=== PATIENT | female | born 1945 | race American Indian/Alaskan Native ===

== ENCOUNTER 2018-05-17 13:04 | Observation (INO) | payer BC, MEDICARE ==
--- NOTE | 2018-05-17 13:23 | ED PDOC ---
Arrival/HPI - General Chief Complaint: Chest Pain Time Seen by Provider: 05/17/18 13:14 Historian: Patient - History of Present Illness Narrative History of Present Illness (Text): 05/17/18 13:22 72 year old female, whose PMH includes hypertension, asthma, and anemia, who presents to the emergency department complaining of sudden onset of sub-sternal chest tightness that began while completing daily physical rehab (outpatient) s/ p right knee surgery. Dr. Vazquez did patient's surgery in March and patient has been attending physical therapy 5 days a week over the last 2 weeks. Patient reports feeling well until today and states her chest pain is similar to previous chest pain symptoms that she was treated for weeks ago at [facility] for pulmonary embolism. Patient states she felt shortness of breath today associated with fatigue and not feeling well herself. Patient denies fever, chills, sweats, palpitations, numbness/tingling, abdominal pain, nausea, vomiting, diarrhea, or other complaints. Pt denied rashes/bleeding; She also noted having continuous right knee pain with some swelling; pt denied other complaints; pt is here for further eval. during recent hospitalization at [facility] - pt + anemia/PE (received IVC filter), currently on lovenox injection daily [facility] Quality Assurance Analyst: Dr. Weaver Patient is supposed to f/u with Dr. Olguin, for hematology/oncology. Time/Duration: Prior to Arrival Symptom Onset: Sudden Symptom Course: Improving Quality: Tightness Severity Level: Severe Activities at Onset: Other (rehab) Context: Other (rehab) Past Medical History - Provider Review Nursing Documentation Reviewed: Yes - Travel History Have you recently traveled outside [place] w/in the past 3 mons?: No - Infectious Disease Hx of Infectious Diseases: None - Tetanus Immunization Tetanus Immunization: Unknown - Reproductive Menopause: Yes Currently : No - Cardiac Hx Hypertension: Yes - Pulmonary Hx Asthma: Yes (sleep apnea) Hx Pneumonia: Yes (" IN THE 1970'S") - Neurological Hx Neurological Disorder: No - HEENT Hx HEENT Disorder: No - Renal Hx Renal Disorder: No - Endocrine/Metabolic Hx Endocrine Disorders: No - Hematological/Oncological Hx Anemia: Yes (On supplemental iron prior to admission) - Integumentary Hx Dermatological Disorder: No - Musculoskeletal/Rheumatological Hx Arthritis: Yes Hx Falls: No Hx Fractures: Yes (HX: TOES) - Gastrointestinal Hx Constipation: Yes (In transitional care unit) Other/Comment: Colonoscopy with polypectomy - Genitourinary/Gynecological Hx Genitourinary Disorders: No - Psychiatric Hx Depression: Yes Hx Substance Use: No - Past Surgical History Past Surgical History: No Previous - Surgical History Hx Gastric Bypass Surgery: Yes Hx Joint Replacement: Yes (04/12/2018 right TKR) Hx Tonsillectomy: Yes Other/Comment: Bunionectomy, reduction mammoplasty 1999 - Anesthesia Hx Anesthesia: Yes Hx Anesthesia Reactions: No Hx Malignant Hyperthermia: No - Suicidal Assessment Feels Threatened In Home Enviroment: No Family/Social History - Physician Review Nursing Documentation Reviewed: Yes Family/Social History: Unknown Family HX Smoking Status: Never Smoked Hx Alcohol Use: No Hx Substance Use: No Hx Substance Use Treatment: No Allergies/Home Meds Allergies/Adverse Reactions: Allergies peanut Allergy (Intermediate, Verified 04/26/18 17:02) SHORTNESS OF BREATH Review of Systems - Review of Systems Constitutional: Fatigue. absent: Fevers Eyes: Normal ENT: absent: Sinus Congestion Respiratory: SOB. absent: Cough Cardiovascular: Chest Pain Gastrointestinal: absent: Abdominal Pain, Nausea, Vomiting Genitourinary Female: absent: Dysuria Musculoskeletal: absent: Back Pain Skin: absent: Rash Neurological: absent: Headache, Dizziness Endocrine: absent: Diaphoresis Hemo/Lymphatic: Normal Psychiatric: Normal Physical Exam - Physical Exam Narrative Physical Exam (Text): 05/17/18 General: alert/awake, GCS = 15, oriented x 3, resting in bed, uncomfortable, cooperative, interactive; NAD; + mildly anxious Head: NC/AT EYE: PERRLA, EOMI, sclera anicteric, no nystagmus, no photophobia; visual field intact b/l Facial: WNL Oral: uvula/tongue are midline, no exudate/lesions, no drooling/stridor, no dysphonia; fair dentitions NECK: intact ROM, no midline tenderness, no nuchal rigidity, no meningeal signs ; no step off Chest: CTA b/l, no w/r/r; no tachypenia, no accessory muscle use noted Chest Wall: no crepitus, no lesions, no gross deformities, no focal tenderness Cardiac: +S1, +S2, no m/r/r, no tachycardia Abdominal: +BS, soft/nd/nt, well nourished patient; no masses/rebound/guarding/ rigidity; no plummer's sign, no mcburney's point tenderness Extremities: (+) right knee covered with bandage and decreased ROM due to previous surgery; (+) mild Right leg swelling > left; (+) +1 pedal edema to distal knee; strength 5/5 grossly intact in all limbs, neurovascular intact b/l ; + ambulatory with limp BACK: no step off, no midline tenderness, NO crepitus, no gross deformities noted; Intact ROM SKIN: (+) mild paleness, cap refill < 1 sec, no ulcerations, no petechiae, no rashes NEURO: CNII-XII WNL, no facial asymmetries, no slurr speech, oriented x 3 NIH stroke scale ~ 0 Psych: normal insight, normal affect; follows command with ease Vital Signs Reviewed: Yes Vital Signs Temp Pulse Resp BP Pulse Ox 05/17/18 16:43 84 18 107/53 L 96 05/17/18 13:05 98.3 F 72 17 100/65 98 Temperature: Afebrile Blood Pressure: Normal Pulse: Regular Respiratory Rate: Normal Appearance: Positive for: Well-Appearing, Non-Toxic, Uncomfortable Pain Distress: Mild Mental Status: Positive for: Alert and Oriented X 3 - Systems Exam Head: Present: Atraumatic, Normocephalic Medical Decision Making ED Course and Treatment: 05/17/18 Impression: 72 year old female with right knee covered with bandage and decreased ROM due to previous surgery, as well as +1 pedal edema up to distal knee, complaining of chest pain tightness. Differential Diagnosis included but are not limited to: r/o pulmonary embolism r/o ACS, dehydration, DVT, and anemia Plan: -- EKG -- Chest X-ray -- Labs -- Urinalysis -- Reassess and disposition Progress Notes: 05/17/18 16:14 Discussed case with (hospitalist), who is made aware and agrees with patient admission/observation under her service. 05/17/18 16:19 Patient is made aware of her medical results and agrees with the recommendation for admission/observation. pt is currently comfortable pt is not in any distress vital signs WNL Re-evaluation Time: 16:00 Reassessment Condition: Re-examined, Improved - Lab Interpretations Lab Results: 05/17/18 14:15 05/17/18 14:15 Lab Results 05/17/18 14:15: Sodium 143, Potassium 3.8, Chloride 103, Carbon Dioxide 32, Anion Gap 12, BUN 15, Creatinine 0.7, Est GFR ( Amer) > 60, Est GFR (Non- Af Amer) > 60, Random Glucose 95, Calcium 9.0, Total Bilirubin 0.4, AST 19, ALT 19, Alkaline Phosphatase 75, Troponin I < 0.01, NT-Pro-B Natriuret Pep 160, Total Protein 7.0, Albumin 3.8, Globulin 3.2, Albumin/Globulin Ratio 1.2, Lipase 30 05/17/18 14:15: PT 12.9 H, INR 1.13, APTT 34.2 05/17/18 14:15: WBC 5.7 D, RBC 3.47 L, Hgb 10.7 L, Hct 32.3 L, MCV 93.1, MCH 30.8, MCHC 33.1, RDW 14.6 H, Plt Count 266, MPV 10.5, Gran % 67.0, Lymph % (Auto ) 23.6, [place] % (Auto) 8.0 H, Eos % (Auto) 1.2 L, Baso % (Auto) 0.2, Gran # 3.83 , Lymph # (Auto) 1.4, [place] # (Auto) 0.5, Eos # (Auto) 0.1, Baso # (Auto) 0.01 I have reviewed the lab results: Yes Interpretation: All labs normal - RAD Interpretation Narrative RAD Interpretations (Text): 05/17/18 15:57 Chest X-ray: Creator : Suresh Lambert MD COMPARISON: 07/13/2015 FINDINGS: LUNGS: Clear. PLEURA: No pneumothorax or pleural fluid seen. CARDIOVASCULAR: Normal. OSSEOUS STRUCTURES: No significant abnormalities. VISUALIZED UPPER ABDOMEN: Normal. OTHER FINDINGS: None. IMPRESSION: No active disease. 05/17/18 15:57 Right Knee X-ray: Creator : Suresh Lambert MD FINDINGS: There has been a recent right knee replacement. There is normal alignment. There are no complicating factor IMPRESSION: As above 05/17/18 16:21 Lower extremity US(Preliminary): Negative DVT bilaterally. Date of service: 05/17/2018 PROCEDURE: CT Chest with contrast (Pulmonary Angiogram) HISTORY: hx of pe, sudden chest pain/pressure COMPARISON: None available. TECHNIQUE: Axial computed tomography images were obtained of the chest in the pulmonary arterial phase of enhancement. Coronal and sagittal reformatted images were created and reviewed. Intravenous contrast dose: 100 cc of Omni 350 Radiation dose: Total exam DLP = 445 mGy-cm. This CT exam was performed using one or more of the following dose reduction techniques: Automated exposure control, adjustment of the mA and/or kV according to patient size, and/or use of iterative reconstruction technique. FINDINGS: PULMONARY ARTERIES: Unremarkable. No pulmonary embolism. AORTA: No acute findings. No thoracic aortic aneurysm. LUNGS: Unremarkable. No nodule, mass or pulmonary consolidation. PLEURAL SPACES: Unremarkable. No effusion or pneumothorax. HEART: Unremarkable. No cardiomegaly. No significant pericardial effusion. LYMPH NODES: No lymphadenopathy. BONES, CHEST WALL: Unremarkable. No fracture or destructive lesion OTHER FINDINGS: Suture line in the stomach IMPRESSION: Unremarkable CT pulmonary angiogram. No pulmonary embolus. Radiology Orders: 05/17/18 13:42 CHEST ONE VIEW [RAD] Stat 05/17/18 13:43 ANGIO CHEST PE PROTOCOL [CT] Stat 05/17/18 13:44 KNEE RIGHT 2 VIEWS (AP & LAT) [RAD] Stat DUPLEX LOWER EXTRM VEIN BILAT [US] Stat Yard Person: Radiologist - EKG Interpretation EKG Interpretation (Text): 05/17/18 17:12 NSR at 70 bpm, normal axis, no ectopy, diffuse low voltage inf/anterolateral leads, qs in leads L, no st-t changes, ABNL EKG; Interpreted by ED Physician: Yes Type: 12 lead EKG - Medication Orders Current Medication Orders: Discontinued Medications Aspirin (Aspirin) 325 mg PO STAT STA Stop: 05/17/18 16:29 Last Admin: 05/17/18 16:41 Dose: 325 mg - Scribe Statement The provider has reviewed the documentation as recorded by the John Chow Provider Scribe Attestation: All medical record entries made by the Scribe were at my direction and personally dictated by me. I have reviewed the chart and agree that the record accurately reflects my personal performance of the history, physical exam, medical decision making, and the department course for this patient. I have also personally directed, reviewed, and agree with the discharge instructions and disposition. Disposition/Present on Arrival - Present on Arrival Any Indicators Present on Arrival: No History of DVT/PE: Yes History of Uncontrolled Diabetes: No Urinary Catheter: No History of Decub. Ulcer: No History Surgical Site Infection Following: None - Disposition Have Diagnosis and Disposition been Completed?: Yes Diagnosis: Chest pain with minimal risk for cardiac etiology, Shortness of breath Disposition: HOSPITALIZED Disposition Time: 16:30 Patient Plan: Observation, Telemetry Condition: STABLE Discharge Instructions (ExitCare): Chest Pain (ED) Print Language: MONGOLIAN
[2018-05-17 13:28] VITALS: BMI 30.8
[2018-05-17 14:30] LABS: BASO # 0.01 K/mm3 (0.0-2.0); BASO % 0.2 % (0.0-3.0); EOS # 0.1 (0.0-0.7); EOS % 1.2 % (1.5-5.0); GRAN # 3.83 (1.4-6.5); HEMOGLOBIN 10.7 g/dL (12.0-16.0); LYMPH # 1.4 (1.2-3.4); LYMPH % 23.6 % (22.0-35.0); MEAN CELL VOLUME 93.1 fl (80.0-105.0); MEAN CORPUSCULAR HEMOGLOBIN 30.8 pg (25.0-35.0); MEAN CORPUSCULAR HGB CONC 33.1 g/dl (31.0-37.0); MEAN PLATELET VOLUME 10.5 fl (7.0-11.0); MONO # 0.5 (0.1-0.6); RBC 3.47 10^6/uL (3.5-6.1); RED CELL DISTRIBUTION WIDTH 14.6 % (11.5-14.5); WHITE BLOOD COUNT 5.7 10^3/ul (4.5-11.0)
[2018-05-17 14:36] LABS: INR 1.13; PROTHROMBIN TIME 12.9 SECONDS (9.4-12.5)
[2018-05-17 14:38] LABS: PARTIAL THROMBOPLASTIN TIME 34.2 Seconds (25.1-36.5)
[2018-05-17 14:45] LABS: ALB/GLOB RATIO 1.2 (1.1-1.8); ALBUMIN 3.8 g/dL (3.0-4.8); ALT/SGPT 19 U/L (7-56); AST/SGOT 19 U/L (14-36); BLOOD UREA NITROGEN 15 mg/dL (7-21); GFR AFRICAN-AMERICAN > 60; GFR NON-AFRICAN AMERICAN > 60; LIPASE 30 U/L (23-300)
[2018-05-17] MEDS ORDERED: Iohexol 350 MG/100 ML VIAL ONE (14:56)
[2018-05-17 14:57] LABS: B-TYPE NATRIURETIC PEPTIDE 160 pg/mL (0-450); TROPONIN I < 0.01 ng/mL
--- NOTE | 2018-05-17 15:42 | RAD ---
Date of service: 05/17/2018 PROCEDURE: CHEST RADIOGRAPH, 1 VIEW HISTORY: chest pain/shortness of breath, hx of pe COMPARISON: 07/13/2015 FINDINGS: LUNGS: Clear. PLEURA: No pneumothorax or pleural fluid seen. CARDIOVASCULAR: Normal. OSSEOUS STRUCTURES: No significant abnormalities. VISUALIZED UPPER ABDOMEN: Normal. OTHER FINDINGS: None. IMPRESSION: No active disease.
--- NOTE | 2018-05-17 15:43 | RAD ---
Date of service: 05/17/2018 PROCEDURE: Right knee two views HISTORY: persistent knee pain, s/p surgery COMPARISON: TECHNIQUE: Two views FINDINGS: There has been a recent right knee replacement. There is normal alignment. There are no complicating factor IMPRESSION: As above
--- NOTE | 2018-05-17 15:56 | CT ---
Date of service: 05/17/2018 PROCEDURE: CT Chest with contrast (Pulmonary Angiogram) HISTORY: hx of pe, sudden chest pain/pressure COMPARISON: None available. TECHNIQUE: Axial computed tomography images were obtained of the chest in the pulmonary arterial phase of enhancement. Coronal and sagittal reformatted images were created and reviewed. Intravenous contrast dose: 100 cc of Omni 350 Radiation dose: Total exam DLP = 445 mGy-cm. This CT exam was performed using one or more of the following dose reduction techniques: Automated exposure control, adjustment of the mA and/or kV according to patient size, and/or use of iterative reconstruction technique. FINDINGS: PULMONARY ARTERIES: Unremarkable. No pulmonary embolism. AORTA: No acute findings. No thoracic aortic aneurysm. LUNGS: Unremarkable. No nodule, mass or pulmonary consolidation. PLEURAL SPACES: Unremarkable. No effusion or pneumothorax. HEART: Unremarkable. No cardiomegaly. No significant pericardial effusion. LYMPH NODES: No lymphadenopathy. BONES, CHEST WALL: Unremarkable. No fracture or destructive lesion OTHER FINDINGS: Suture line in the stomach IMPRESSION: Unremarkable CT pulmonary angiogram. No pulmonary embolus.
[2018-05-17 16:44] VITALS: O2SAT 96
--- NOTE | 2018-05-17 17:46 | US ---
HISTORY: Leg pain and swelling. Evaluate for DVT PHYSICIAN(S): Ebenezer Doshi MD. TECHNIQUE: Duplex sonography and color-flow Doppler with graded compression were used to evaluate the deep venous systems of both lower extremities. FINDINGS: The visualized deep venous systems of both lower extremities are sonographically normal and compressible. Normal wave forms and augmentation are seen. There is no sonographic evidence for deep venous thrombosis in the visualized segments of both lower extremities. IMPRESSION: No sonographic evidence for deep venous thrombosis in the visualized segments of both lower extremities.
[2018-05-17 18:11] LABS: PH,URINE 6.5 (4.7-8.0); URINE BILIRUBIN NEGATIVE (NEGATIVE); URINE BLOOD NEGATIVE (NEGATIVE); URINE GLUCOSE (UA) NEGATIVE (NEGATIVE); URINE LEUKOCYTE ESTERASE TRACE Leu/uL (NEGATIVE); URINE PROTEIN NEGATIVE mg/dL (<30 mg/dL); URINE UROBILINOGEN 0.2 E.U./dL (<1 E.U./dL)
[2018-05-17 18:27] LABS: URINE APPEARANCE CLEAR (CLEAR); URINE COLOR LIGHT YELLOW (YELLOW)
[2018-05-17] MEDS ORDERED: Oxycodone/Acetaminophen 5/325 mg Tab PO PRN ×2 (18:36→20:43)
[2018-05-17 18:50] LABS: URINE WBC 0 - 2 /hpf (0-6)
[2018-05-17 18:51] LABS: URINE BACTERIA SMALL (NEG)
[2018-05-17] MEDS ORDERED: Magnesium Hydroxide Susp 30 ml UD PO ONE (20:43)
[2018-05-17] MEDS: Albuterol-Ipratrop 3 mg / 0.5 (3 ml) UD IH SCH (20:55)
--- NOTE | 2018-05-17 22:04 | CP.PCM.HP ---
<Eben Stone Aaliyah - Last Filed: 05/18/18 05:30> History of Present Illness - History of Present Illness History of Present Illness: History and Physical for Hospitalist Service Ebne Stone PGY2 Chief Complaint: Chest tightness with associated shortness of breath HPI Patient is a 72 F with history of Pulmonary embolism s/p right knee repair, hypertension, and GERD presenting with complaints of chest tightness and shortness of breath. Patient states she recently had knee replacement surgery performed at [facility] on April 10 and was then discharged a couple days later to [facility] for rehabilitation where she experienced a similar chest tightness and shortness of breath where she was found to have a PE. States this episode was similar to previous episode however less in intensity. Believed that this pain was due to the intense physical therapy session she was undergoing at the time; states she cant tolerate it at times. Patient did experience dizziness however denies nausea, vomiting, diarrhea, blurry vision, headache at the time. Patient states she used her albuterol several times to relieve her shortness of breath, which she is not sure if it helped or not. Admits to normally using her inhaler twice a month. Upon being evaluated in the emergency department patient states all symptom shad resolved. PMD: Dr. Vargas Therapeutic Sales Specialist: Dr. Desouza Surgical history: Knee repair Family history: Father-[place] a 50. Mother- family hx significant for cancers Allergies: peanuts Social history: denies tobaccol and drug abuse; admits to occasional social alcohol consumption Labs: Troponin 0.01, H&H 10.7/32.3 (increased from baseline) Imaging CTA chest: negative PE Present on Admission - Present on Admission Any Indicators Present on Admission: Yes History of DVT/PE: Yes Review of Systems - Constitutional Constitutional: absent: Chills, Fever - EENT Eyes: absent: Blurred Vision - Cardiovascular Cardiovascular: Leg Edema. absent: Chest Pain, Chest Pain at Rest, Dyspnea - Respiratory Respiratory: absent: Cough, Dyspnea - Gastrointestinal Gastrointestinal: absent: Abdominal Pain, Diarrhea, Nausea, Vomiting - Genitourinary Genitourinary: absent: Dysuria - Musculoskeletal Musculoskeletal: absent: Back Pain - Neurological Neurological: absent: Dizziness, Numbness - Psychiatric Psychiatric: Anxiety - Endocrine Endocrine: absent: Flushing Past Patient History - Infectious Disease Hx of Infectious Diseases: None - Tetanus Immunizations Tetanus Immunization: Unknown - Past Medical History & Family History Past Medical History?: Yes - Past Social History Smoking Status: Never Smoked - CARDIAC Hx Cardiac Disorders: Yes Hx Hypertension: Yes Hx Peripheral Vascular Disease: Yes (right groin ivc filter) - PULMONARY Hx Respiratory Disorders: Yes Hx Asthma: Yes Hx Pneumonia: Yes (" IN THE 1970'S") Hx Sleep Apnea: Yes - NEUROLOGICAL Hx Neurological Disorder: No - HEENT Hx HEENT Problems: No - RENAL Hx Chronic Kidney Disease: No - ENDOCRINE/METABOLIC Hx Endocrine Disorders: No - HEMATOLOGICAL/ONCOLOGICAL Hx Blood Disorders: Yes Hx Anemia: Yes (On supplemental iron prior to admission) - INTEGUMENTARY Hx Dermatological Problems: Yes Hx Eczema: Yes - MUSCULOSKELETAL/RHEUMATOLOGICAL Hx Falls: No - GASTROINTESTINAL Hx Gastrointestinal Disorders: Yes Hx Gastroesophageal Reflux: Yes Other/Comment: Colonoscopy with polypectomy - GENITOURINARY/GYNECOLOGICAL Hx Genitourinary Disorders: Yes Hx Urinary Tract Infection: Yes - PSYCHIATRIC Hx Psychophysiologic Disorder: No - SURGICAL HISTORY Hx Surgeries: Yes Hx Gastric Bypass Surgery: Yes Hx Joint Replacement: Yes (04/12/2018 right TKR) Other/Comment: Bunionectomy, reduction mammoplasty 1999 - ANESTHESIA Hx Anesthesia: Yes Hx Anesthesia Reactions: No Hx Malignant Hyperthermia: No Meds Allergies/Adverse Reactions: Allergies Allergy/AdvReac Type Severity Reaction Status Date / Time peanut Allergy Intermediate SHORTNESS Verified 04/26/18 17:02 OF BREATH Physical Exam - Constitutional Appears: Non-toxic - Head Exam Head Exam: ATRAUMATIC, NORMAL INSPECTION, NORMOCEPHALIC - Eye Exam Eye Exam: EOMI, Normal appearance - ENT Exam ENT Exam: Mucous Membranes Moist, Normal Exam - Neck Exam Neck exam: Positive for: Normal Inspection - Respiratory Exam Respiratory Exam: Clear to Auscultation Bilateral, NORMAL BREATHING PATTERN. absent: Rhonchi, Wheezes - Cardiovascular Exam Cardiovascular Exam: REGULAR RHYTHM, +S1, +S2 - GI/Abdominal Exam GI & Abdominal Exam: Normal Bowel Sounds, Soft. absent: Distended, Firm - Extremities Exam Extremities exam: Negative for: calf tenderness, normal inspection - Back Exam Back exam: NORMAL INSPECTION - Neurological Exam Neurological exam: Alert, CN II-XII Intact, Oriented x3 - Psychiatric Exam Psychiatric exam: Normal Affect, Normal Mood - Skin Skin Exam: Normal Color, Warm Results - Vital Signs Recent Vital Signs: Last Vital Signs Temp 98.3 F 05/17/18 18:48 Pulse 84 05/17/18 20:57 Resp 19 05/17/18 20:28 BP 129/67 05/17/18 18:48 Pulse Ox 96 05/17/18 18:48 - Labs Result Diagrams: 05/17/18 14:15 05/17/18 14:15 Labs: Laboratory Results - last 24 hr 05/17/18 05/17/18 05/17/18 17:40 20:29 20:29 Troponin I < 0.01 TSH 3rd Generation 1.30 Urine Color Light yellow Urine Appearance Clear Urine pH 6.5 Ur Specific [place] <= 1.005 Urine Protein Negative Urine Glucose (UA) Negative Urine Ketones Negative Urine Blood Negative Urine Nitrate Negative Urine Bilirubin Negative Urine Urobilinogen 0.2 Ur Leukocyte Esterase Trace H Urine RBC 1 - 3 Urine WBC 0 - 2 Ur Epithelial Cells 6 - 8 Urine Bacteria Small Assessment & Plan - Assessment and Plan (Free Text) Assessment: 72 F with history of Pulmonary embolism s/p right knee repair, hypertension, and GERD presenting with complaints of chest tightness and dyspnea. Plan: Chest pain r/o ACS -Patient's quill machine tender Dr. Desouza consulted -Trop negative x 1, continue to trend -EKG negative for ST changes, T wave inversions -TSH ordered; results pending -Lipid panel ordered; results pending History of PE -Continue patient's home dose of lovenox -SCDs History of Asthma -Duonebs PRN q6h History of Hypertension -Continue with Losartan History of Anemia -Currently improved H&H in comparison to patient's baseline -Continue to monitor CBC -Continue with ferrous sulfate; patient states she was taking at home History of GERD -Continue with Protonix GI/DVT prophylaxis: Protonix/Lovenox+SCDs <Odalys Hernandes R - Last Filed: 05/18/18 17:10> Results - Vital Signs Recent Vital Signs: Last Vital Signs Temp 98.9 F 05/18/18 09:10 Pulse 67 05/18/18 09:10 Resp 17 05/18/18 09:10 BP 101/60 05/18/18 09:10 Pulse Ox 96 05/18/18 09:10 - Labs Result Diagrams: 05/18/18 06:00 05/18/18 06:00 Labs: Laboratory Results - last 24 hr 05/17/18 05/17/18 05/17/18 17:40 20:29 20:29 WBC RBC Hgb Hct MCV MCH MCHC RDW Plt Count MPV Gran % Lymph % (Auto) [place] % (Auto) Eos % (Auto) Baso % (Auto) Gran # Lymph # (Auto) [place] # (Auto) Eos # (Auto) Baso # (Auto) Sodium Potassium Chloride Carbon Dioxide Anion Gap BUN Creatinine Est GFR ( Amer) Est GFR (Non-Af Amer) Random Glucose Hemoglobin A1c 5.4 Calcium Total Bilirubin AST ALT Alkaline Phosphatase Troponin I Total Protein Albumin Globulin Albumin/Globulin Ratio Triglycerides Cholesterol LDL Cholesterol Direct HDL Cholesterol TSH 3rd Generation 1.30 Urine Color Light yellow Urine Appearance Clear Urine pH 6.5 Ur Specific [place] <= 1.005 Urine Protein Negative Urine Glucose (UA) Negative Urine Ketones Negative Urine Blood Negative Urine Nitrate Negative Urine Bilirubin Negative Urine Urobilinogen 0.2 Ur Leukocyte Esterase Trace H Urine RBC 1 - 3 Urine WBC 0 - 2 Ur Epithelial Cells 6 - 8 Urine Bacteria Small 05/17/18 05/18/18 05/18/18 20:29 01:30 06:00 WBC RBC Hgb Hct MCV MCH MCHC RDW Plt Count MPV Gran % Lymph % (Auto) [place] % (Auto) Eos % (Auto) Baso % (Auto) Gran # Lymph # (Auto) [place] # (Auto) Eos # (Auto) Baso # (Auto) Sodium 142 Potassium 3.8 Chloride 104 Carbon Dioxide 31 Anion Gap 10 BUN 12 Creatinine 0.6 L Est GFR ( Amer) > 60 Est GFR (Non-Af Amer) > 60 Random Glucose 91 Hemoglobin A1c Calcium 8.5 Total Bilirubin 0.4 AST 15 ALT 27 Alkaline Phosphatase 60 Troponin I < 0.01 < 0.01 Total Protein 6.1 Albumin 3.1 Globulin 3.0 Albumin/Globulin Ratio 1.0 L Triglycerides 60 Cholesterol 112 L LDL Cholesterol Direct 39 HDL Cholesterol 45 TSH 3rd Generation Urine Color Urine Appearance Urine pH Ur Specific [place] Urine Protein Urine Glucose (UA) Urine Ketones Urine Blood Urine Nitrate Urine Bilirubin Urine Urobilinogen Ur Leukocyte Esterase Urine RBC Urine WBC Ur Epithelial Cells Urine Bacteria 05/18/18 06:00 WBC 4.4 L D RBC 3.17 L Hgb 9.8 L Hct 29.2 L MCV 92.1 MCH 30.9 MCHC 33.6 RDW 14.4 Plt Count 218 MPV 10.1 Gran % 61.1 Lymph % (Auto) 24.2 [place] % (Auto) 9.4 H Eos % (Auto) 4.8 Baso % (Auto) 0.5 Gran # 2.68 Lymph # (Auto) 1.1 L [place] # (Auto) 0.4 Eos # (Auto) 0.2 Baso # (Auto) 0.02 Sodium Potassium Chloride Carbon Dioxide Anion Gap BUN Creatinine Est GFR ( Amer) Est GFR (Non-Af Amer) Random Glucose Hemoglobin A1c Calcium Total Bilirubin AST ALT Alkaline Phosphatase Troponin I Total Protein Albumin Globulin Albumin/Globulin Ratio Triglycerides Cholesterol LDL Cholesterol Direct HDL Cholesterol TSH 3rd Generation Urine Color Urine Appearance Urine pH Ur Specific [place] Urine Protein Urine Glucose (UA) Urine Ketones Urine Blood Urine Nitrate Urine Bilirubin Urine Urobilinogen Ur Leukocyte Esterase Urine RBC Urine WBC Ur Epithelial Cells Urine Bacteria Attending/Attestation - Attestation I have personally seen and examined this patient.: Yes I have fully participated in the care of the patient.: Yes I have reviewed all pertinent clinical information: Yes Notes (Text): Patient seen and examined by me at 5:30PM with resident 05/17/18. Case including HPI, physical exam, and assessment and plan discussed with resident. Agree with above with following additions/corrections. Patient is a 72-year-old female with past medical history significant for recently diagnosed pulmonary embolism status post right knee repair, hypertension, and GERD that presented to the emergency room with chest tightness and associated shortness of breath. Patient had a total right knee replacement on April 10 at [facility]. She was discharged to rehabilitation where she was found to have pulmonary embolism. Patient was discharged after treatment and has been going to outpatient physical therapy. She states today during physical therapy, she started to have chest pressure at the center of the chest which made it difficult for her to take in deep breaths. She states that this pressure lasted approximately 20 minutes. There was no radiation and no associated nausea, vomiting, or diaphoresis. She states that this is the same feeling she had when she was diagnosed with a pulmonary embolism. Patient states she tried albuterol inhaler without any relief. She denies any current chest pain or shortness of breath. No nausea, vomiting, abdominal pain. No headaches or dizziness. No fevers or chills. No dysuria. No diarrhea or constipation. Patient does complain of some right knee pain. 12 point review systems reviewed by me. Please see HPI. All other systems are negative. Past medical history: As stated above Home medications reviewed by me. Physical exam: Gen: Awake and alert sitting up in bed in no acute distress HEENT: Normocephalic atraumatic. Extraocular muscles intact, pupils equal reactive. Oropharynx is pink and moist, no pharyngeal erythema or exudate appreciated. Neck is supple. Hearing grossly intact. Ears and nose externally unremarkable Cardiovascular: Regular rhythm. Normal S1, S2. No murmurs, rubs, or gallops appreciated Pulmonary: Normal respiratory effort. No rhonchi, rales, or wheezing appreciated Gastrointestinal: Soft, nontender, nondistended, positive bowel sounds all 4 quadrants, no guarding. Musculoskeletal: Moves all extremities, no calf tenderness. Decreased range of motion at right knee. Right knee dressing clean, dry, and intact. Positive edema around the right knee. Positive bilateral lower extremity pitting edema right greater than left. Central nervous system: AAO x 3. 5/5 muscle strength all extremities. CN 2-12 grossly intact Dermatologic: Skin warm and dry Assessment and plan: Patient is a 72-year-old female with past medical history significant for recently diagnosed pulmonary embolism status post right knee repair, hypertension, and GERD that presented to the emergency room with chest tightness and associated shortness of breath. 1. Chest pain. Resolved. Rule out acute coronary syndrome. First troponin within normal limits. Patient given aspirin in the emergency room. Aspirin held for now as patient recently had stool for occult blood positive. Patient's quill machine tender Dr. Desouza consulted, follow up recommendations. Continue home Cozaar. Monitor on telemetry. EKG with sinus rhythm. 2. Recently diagnosed with pulmonary emboli. Status post IVC filter. CTA chest done here does not show any pulmonary emboli. Bilateral Lower extremity Dopplers did not show any DVTs. Patient is on Lovenox 40 mg subcutaneous daily at home, we will continue this. 3. Anemia. Continue home iron. Patient is following up with public service administrator Dr. Deshpande as an outpatient. 4. Status post right knee replacement. Right knee x-ray per radiologist shows recent right knee replacement, normal alignment, no complicating factor. Continue with pain management. Patient to continue outpatient physical therapy 5. History of asthma. Placed on nebulizer treatments as needed. Not in acute exacerbation 6. Essential hypertension. Continue home losartan 7. GERD. Continue Protonix 8. GI/DVT prophylaxis. Protonix and Lovenox 9. Patient is a full code Case was discussed in detail with the patient regarding current diagnosis and treatment plan.
[2018-05-18] MEDS: Albuterol-Ipratrop 3 mg / 0.5 (3 ml) UD IH SCH ×2 (03:00→08:44)
[2018-05-18] MEDS ORDERED: Pantoprazole 40 mg EC Tab PO SCH (06:00)
[2018-05-18 06:27] LABS: BASO # 0.02 K/mm3 (0.0-2.0); BASO % 0.5 % (0.0-3.0); EOS # 0.2 (0.0-0.7); EOS % 4.8 % (1.5-5.0); GRAN # 2.68 (1.4-6.5); GRAN % 61.1 % (50.0-68.0); HEMOGLOBIN 9.8 g/dL (12.0-16.0); LYMPH # 1.1 (1.2-3.4); LYMPH % 24.2 % (22.0-35.0); MEAN CELL VOLUME 92.1 fl (80.0-105.0); MEAN CORPUSCULAR HEMOGLOBIN 30.9 pg (25.0-35.0); MEAN CORPUSCULAR HGB CONC 33.6 g/dl (31.0-37.0); MEAN PLATELET VOLUME 10.1 fl (7.0-11.0); MONO # 0.4 (0.1-0.6); MONO % 9.4 % (1.0-6.0); RBC 3.17 10^6/uL (3.5-6.1); RED CELL DISTRIBUTION WIDTH 14.4 % (11.5-14.5); WHITE BLOOD COUNT 4.4 10^3/ul (4.5-11.0)
[2018-05-18 06:43] LABS: ALBUMIN 3.1 g/dL (3.0-4.8); ALT/SGPT 27 U/L (7-56); AST/SGOT 15 U/L (14-36); BLOOD UREA NITROGEN 12 mg/dL (7-21); CALCIUM 8.5 mg/dL (8.4-10.5); GFR AFRICAN-AMERICAN > 60; GFR NON-AFRICAN AMERICAN > 60; HDL CHOLESTEROL 45 mg/dL (29-60)
[2018-05-18 06:51] LABS: LDL CHOLESTEROL 39 mg/dL (0-129)
--- NOTE | 2018-05-18 07:42 | CP.PCM.PN ---
Subjective - Date & Time of Evaluation Date of Evaluation: 05/18/18 Time of Evaluation: 07:00 Objective - Vital Signs/Intake and Output Vital Signs (last 24 hours): Temp Pulse Resp BP Pulse Ox 98.3 F 77 19 129/67 96 05/17/18 18:48 05/18/18 05:23 05/17/18 20:28 05/17/18 18:48 05/17/18 18:48 Intake and Output: 05/18/18 05/18/18 06:59 18:59 Intake Total 240 Output Total 0 Balance 240 - Medications Medications: Current Medications Acetaminophen (Tylenol 325mg Tab) 650 mg PO Q6H PRN PRN Reason: Fever >100.4 F Albuterol/Ipratropium (Duoneb 3 Mg/0.5 Mg (3 Ml) Ud) 3 ml IH [id number] [facility] Last Admin: 05/18/18 03:00 Dose: 3 ml Enoxaparin Sodium (Lovenox) 40 mg SC DAILY [facility] PRN Reason: Protocol Ferrous Sulfate (Feosol) 324 mg PO TID [facility] Losartan Potassium (Cozaar) 100 mg PO DAILY [facility] Ondansetron HCl (Zofran Inj) 4 mg IVP Q6H PRN PRN Reason: Nausea/Vomiting Oxycodone/Acetaminophen (Percocet 5/325 Mg Tab) 1 tab PO Q6H PRN PRN Reason: Pain, moderate (4-7) Stop: 05/20/18 18:37 Last Admin: 05/18/18 01:39 Dose: 1 tab Pantoprazole Sodium (Protonix Ec Tab) 40 mg PO 0600 [facility] Last Admin: 05/18/18 05:04 Dose: 40 mg - Labs Labs: 05/18/18 06:00 05/18/18 06:00 PT 12.9 SECONDS (9.4-12.5) H 05/17/18 14:15 INR 1.13 05/17/18 14:15 APTT 34.2 Seconds (25.1-36.5) 05/17/18 14:15
[2018-05-18 09:10] VITALS: BP 101/60; PULSE 67; RESP 17; TEMP 98.9
--- NOTE | 2018-05-18 09:41 | CARD ---
APPROVED REPORT Date of service: 05/17/2018 EKG Measurement Heart [id number] <Conclusion> Normal sinus rhythm Low voltage QRS Cannot rule out Anterior infarct, age undetermined Abnormal ECG
[2018-05-18] MEDS ORDERED: Enoxaparin 40 mg Syringe SC SCH (10:00)
--- NOTE | 2018-05-18 14:32 | CP.PCM.DIS ---
Provider - Provider Date of Admission: 05/17/18 16:18 Attending physician: Odalys Hernandes DO Consults: Cardiology - Dr. Desouza Time Spent in preparation of Discharge (in minutes): 70 Hospital Course - Lab Results Lab Results: Most Recent Lab Values WBC 4.4 10^3/ul (4.5-11.0) L D 05/18/18 06:00 RBC 3.17 10^6/uL (3.5-6.1) L 05/18/18 06:00 Hgb 9.8 g/dL (12.0-16.0) L 05/18/18 06:00 Hct 29.2 % (36.0-48.0) L 05/18/18 06:00 MCV 92.1 fl (80.0-105.0) 05/18/18 06:00 MCH 30.9 pg (25.0-35.0) 05/18/18 06:00 MCHC 33.6 g/dl (31.0-37.0) 05/18/18 06:00 RDW 14.4 % (11.5-14.5) 05/18/18 06:00 Plt Count 218 10^3/uL (120.0-450.0) 05/18/18 06:00 MPV 10.1 fl (7.0-11.0) 05/18/18 06:00 Gran % 61.1 % (50.0-68.0) 05/18/18 06:00 Lymph % (Auto) 24.2 % (22.0-35.0) 05/18/18 06:00 [place] % (Auto) 9.4 % (1.0-6.0) H 05/18/18 06:00 Eos % (Auto) 4.8 % (1.5-5.0) 05/18/18 06:00 Baso % (Auto) 0.5 % (0.0-3.0) 05/18/18 06:00 Gran # 2.68 (1.4-6.5) 05/18/18 06:00 Lymph # (Auto) 1.1 (1.2-3.4) L 05/18/18 06:00 [place] # (Auto) 0.4 (0.1-0.6) 05/18/18 06:00 Eos # (Auto) 0.2 (0.0-0.7) 05/18/18 06:00 Baso # (Auto) 0.02 K/mm3 (0.0-2.0) 05/18/18 06:00 PT 12.9 SECONDS (9.4-12.5) H 05/17/18 14:15 INR 1.13 05/17/18 14:15 APTT 34.2 Seconds (25.1-36.5) 05/17/18 14:15 Sodium 142 mmol/L (132-148) 05/18/18 06:00 Potassium 3.8 mmol/L (3.6-5.0) 05/18/18 06:00 Chloride 104 mmol/L (98-107) 05/18/18 06:00 Carbon Dioxide 31 mmol/L (21-33) 05/18/18 06:00 Anion Gap 10 (10-20) 05/18/18 06:00 BUN 12 mg/dL (7-21) 05/18/18 06:00 Creatinine 0.6 mg/dl (0.7-1.2) L 05/18/18 06:00 Est GFR ( Amer) > 60 05/18/18 06:00 Est GFR (Non-Af Amer) > 60 05/18/18 06:00 Random Glucose 91 mg/dL (70-110) 05/18/18 06:00 Hemoglobin A1c 5.4 % (4.2-6.5) 05/17/18 20:29 Calcium 8.5 mg/dL (8.4-10.5) 05/18/18 06:00 Total Bilirubin 0.4 mg/dL (0.2-1.3) 05/18/18 06:00 AST 15 U/L (14-36) 05/18/18 06:00 ALT 27 U/L (7-56) 05/18/18 06:00 Alkaline Phosphatase 60 U/L (38-126) 05/18/18 06:00 Troponin I < 0.01 ng/mL 05/18/18 01:30 NT-Pro-B Natriuret Pep 160 pg/mL (0-450) 05/17/18 14:15 Total Protein 6.1 g/dL (5.8-8.3) 05/18/18 06:00 Albumin 3.1 g/dL (3.0-4.8) 05/18/18 06:00 Globulin 3.0 gm/dL 05/18/18 06:00 Albumin/Globulin Ratio 1.0 (1.1-1.8) L 05/18/18 06:00 Triglycerides 60 mg/dL (35-160) 05/18/18 06:00 Cholesterol 112 mg/dL (130-200) L 05/18/18 06:00 LDL Cholesterol Direct 39 mg/dL (0-129) 05/18/18 06:00 HDL Cholesterol 45 mg/dL (29-60) 05/18/18 06:00 Lipase 30 U/L (23-300) 05/17/18 14:15 TSH 3rd Generation 1.30 mIU/mL (0.46-4.68) 05/17/18 20:29 Urine Color Light yellow (YELLOW) 05/17/18 17:40 Urine Appearance Clear (CLEAR) 05/17/18 17:40 Urine pH 6.5 (4.7-8.0) 05/17/18 17:40 Ur Specific [place] <= 1.005 (1.005-1.035) 05/17/18 17:40 Urine Protein Negative mg/dL (<30 mg/dL) 05/17/18 17:40 Urine Glucose (UA) Negative mg/dL (NEGATIVE) 05/17/18 17:40 Urine Ketones Negative mg/dL (NEGATIVE) 05/17/18 17:40 Urine Blood Negative (NEGATIVE) 05/17/18 17:40 Urine Nitrate Negative (NEGATIVE) 05/17/18 17:40 Urine Bilirubin Negative (NEGATIVE) 05/17/18 17:40 Urine Urobilinogen 0.2 E.U./dL (<1 E.U./dL) 05/17/18 17:40 Ur Leukocyte Esterase Trace [place]ie/uL (NEGATIVE) H 05/17/18 17:40 Urine RBC 1 - 3 /hpf (0-2) 05/17/18 17:40 Urine WBC 0 - 2 /hpf (0-6) 05/17/18 17:40 Ur Epithelial Cells 6 - 8 /hpf (0-5) 05/17/18 17:40 Urine Bacteria Small (NEG) 05/17/18 17:40 - Hospital Course Hospital Course: Jose Choudhary PGY1 - Discharge Summary for Dr. Odalys Hernandes Patient is a 72 year old female, with history of pulmonary embolism s/p right knee repair, hypertension, and GERD who presented to [facility]'s Emergency Department with complaints of chest tightness and shortness of breath. Patient stated she recently had knee replacement surgery performed at [facility] on April 10 and was then discharged a couple days later to [facility] for rehabilitation where she subsequently experienced new onset of chest tightness and shortness of breath that was diagnosed as a Pulmonary Embolism at [facility]. Patient was started on Lovenox therapy 40mg BID at that time. She was not started on therapeutic lovenox therapy of 1mg/kg because she has a history of gastrointestinal bleeding. Prior to admission at [facility], in the Emergency Department, troponins were trended and negative x3 and CTA of the chest was negative for pulmonary embolism at [facility]. She was subsequently admitted for observation. Sequential Compression Devices were ordered. Patient's health technician Dr. Desouza was consulted. EKG was negative for ST changes and T wave inversions. TSH was within normal limits. Lipid panel was within normal limits. Patient has a history of asthma and was given Duoneb treatments as needed which provided symptomatic relief. We monitored her hemoglobin and hematocrit. Home medications were continued for Hypertension, Anemia and GERD with Losartan, Ferrous Sulfate, and Protonix, respectively. Patient is to follow up with Primary care doctor and health technician in 3 days. She is to go to her scheduled appointment with hematology. This is a brief summary of her hospital course. For a detailed history, please refer to medical records. Discharge Exam - Head Exam Head Exam: ATRAUMATIC, NORMAL INSPECTION, NORMOCEPHALIC - Eye Exam Eye Exam: EOMI, Normal appearance - ENT Exam ENT Exam: Mucous Membranes Moist - Respiratory Exam Respiratory Exam: Clear to PA & Lateral, NORMAL BREATHING PATTERN, UNREMARKABLE. absent: Wheezes - Cardiovascular Exam Cardiovascular Exam: REGULAR RHYTHM, +S1, +S2. absent: Systolic Murmur - GI/Abdominal Exam GI & Abdominal Exam: Normal Bowel Sounds, Soft. absent: Tenderness - Extremities Exam Additional comments: Right leg edematous Dressings placed over surgical site - Neurological Exam Neurological exam: Alert, Oriented x3 - Psychiatric Exam Psychiatric exam: Normal Affect, Normal Mood - Skin Skin Exam: Dry, Intact, Normal Color, Warm Discharge Plan - Follow Up Plan Condition: STABLE Disposition: HOME/ ROUTINE Instructions: Chest Pain (ED) Additional Instructions: Please follow up with Dr. Vargas, within 3 days. Please go to your appointment with Dr. Deshpande as previously scheduled. Please let Dr. Deshpande know that CAT scan in the hospital did show any clots in the lungs. Please follow up with your Fire Controlman, Dr. Desouza within 3 days. Please continue to take home medications as previously prescribed. Please return to the emergency room if symptoms reoccur. Referrals: Tod Deshpande MD [Staff Provider] - Faustino Vargas MD [Non-Staff] -
--- NOTE | 2018-05-19 02:17 | CON ---
Copied To: Cristiano Jolly MD Attending MD: Cristiano Jolly MD DATE: 05/18/2018 REQUESTING PHYSICIAN: Dr. Johnson REASON FOR CONSULTATION: Chest pain. HISTORY OF PRESENT ILLNESS: This is a 72-year-old woman previously seen by us who underwent a recent right total knee replacement. This was complicated by a postoperative pulmonary embolus. She was treated with anticoagulant therapy and also had an IVC filter placed as she apparently was anemic and there was concern she would not be on remain on anticoagulants. She was transferred to subacute rehabilitation center and while there, yesterday had some retrosternal chest discomfort while participating in physical therapy. She was brought to the emergency room for evaluation. Initial electrocardiogram and blood work have been unremarkable. A repeat CT scan showed no evidence of residual or new pulmonary emboli. She states that she was being exercised aggressively in attempt to prevent adhesions in her recently operated knee when her chest pain began. She was evaluated late last year prior to plans for surgery with a nuclear stress test which was reportedly unremarkable. She does have a history of hypertension and sleep apnea as well as asthma and anemia. PAST MEDICAL HISTORY: Prior gastric bypass as well as foot surgery and breast reduction surgery. SOCIAL HISTORY: She does not smoke or drink. FAMILY HISTORY: Unremarkable for premature heart disease. ALLERGIES: NO DRUG ALLERGIES NOTED. CURRENT MEDICATIONS: Cozaar, DuoNeb inhaler, Lovenox 40 mg daily, Percocet, Protonix and Zofran. REVIEW OF SYSTEMS: A 10-point review of systems is otherwise unremarkable. PHYSICAL EXAMINATION GENERAL: She is a middle-aged woman who appears comfortable at the present time. VITAL SIGNS: Her blood pressure is 112/60 with pulse of 76, respirations 16. She is afebrile. HEENT: Normocephalic, atraumatic. NECK: Supple. No JVD noted. CHEST: Clear to auscultation and percussion. HEART: PMI in normal position. No pathological murmurs or gallops noted. ABDOMEN: Soft, nontender with normoactive bowel sounds. EXTREMITIES: 1+ right lower extremity edema is noted. Her surgical incision on her right knee is dressed and appears clean and dry. PSYCHIATRIC: Normal mood and affect. NEUROLOGIC: Alert and oriented x3. No gross motor or sensory deficits appreciable. However, right leg mobility is somewhat limited. DIAGNOSTIC DATA: Potassium 3.8, BUN and creatinine 12 and 0.6, hemoglobin and hematocrit are 9.8 and 29.2 with a white count is 4.4, platelet count of 218,000. Three sets cardiac enzymes are normal. Electrocardiogram reveals sinus rhythm with borderline low voltage, prior anterior wall myocardial fraction pattern cannot be excluded. This pattern is unchanged from prior tracings. Chest x-ray is unremarkable. CT of chest as noted. IMPRESSION: 1. Chest pain may have been musculoskeletal in nature given its occurrence with exercise and physical therapy. 2. Status post recent pulmonary embolus, appeared stable at the present time. 3. Status post recent total knee replacement. 4. Anemia evaluation in progress. RECOMMENDATIONS: From a cardiac standpoint, she appears stable for transfer back to rehabilitation center at this time. Outpatient followup with family worker as planned and outpatient followup can be arranged with us as needed. If she has recurrent symptoms, we will be happy to reevaluate. Cristiano Jolly MD
== END 2018-05-18 13:53 | disposition home or self-care (01) ==
LOC: ED 13:04 → ERH 16:18 → 3RSO 19:35
PROVIDERS: ADMIT Hospitalist; ATTEND Hospitalist
DX: R07.89 Other chest pain (principal); I26.99 Other pulmonary embolism without acute cor pulmonale; D64.9 Anemia, unspecified; G47.30 Sleep apnea, unspecified; I10 Essential (primary) hypertension; I73.9 Peripheral vascular disease, unspecified; J45.909 Unspecified asthma, uncomplicated; K21.9 Gastro-esophageal reflux disease without esophagitis; Z86.711 Personal history of pulmonary embolism; Z87.01 Personal history of pneumonia (recurrent); Z87.440 Personal history of urinary (tract) infections; Z96.651 Presence of right artificial knee joint; Z98.84 Bariatric surgery status; Z91.010 Allergy to peanuts
CPT/HCPCS: 36415; 71045; 71275; 73560; 80053; 80061; 81001; 83036; 83690; 83880; 84443; 84484; 85025; 85610; 85730; 87086; 93005; 93970; 94640; 94760; 99283; G0378; J1650; Q9967